=== PATIENT | female | born 1955 | race Two or more races ===

== ENCOUNTER → 2016-11-16 | Outpatient (CLI) | payer MEDICAID | LOC: FIMAGING 15:48 | PROVIDERS: ATTEND Internal Medicine | DX: R06.02 Shortness of breath (principal); R07.9 Chest pain, unspecified; R94.31 Abnormal electrocardiogram [ECG] [EKG] ==

== ENCOUNTER 2016-11-18 12:41 | Observation (INO) | payer MEDICAID ==
[2016-11-18] MEDS ORDERED: DIAZEPAM 5 MG TAB PO ONE (12:43)
[2016-11-18] MEDS ORDERED: diphenhydrAMINE 25 MG CAP PO ONE ×2 (12:43→13:03)
[2016-11-18] MEDS ORDERED: ASPIRIN EC 325 MG TAB PO ONE ×2 (12:43→13:03)
[2016-11-18] MEDS ORDERED: FAMOTIDINE 20 MG TAB PO ONE (12:43)
[2016-11-18] MEDS ORDERED: NS 1,000 ML IV ONE (12:43)
--- NOTE | 2016-11-18 13:01 | CPEKG ---
Heart Rate: 71 RR Interval: 845 P-R Interval: 164 QRSD Interval: 74 QT Interval: 392 QTC Interval: 426 P [place]: 49 QRS [place]: 17 T Wave [place]: 50 EKG Severity - NORMAL ECG - EKG Impression: SINUS RHYTHM Electronically Signed By: Abdias Jose 19-Nov-2016 13:02:02
[2016-11-18] MEDS ORDERED: DIAZEPAM 5 MG TAB ONE (13:03)
[2016-11-18] MEDS ORDERED: FAMOTIDINE 20 MG TAB ONE (13:03)
[2016-11-18 13:22] LABS: % IMMATURE GRANULYOCYTES 0.3 % (0.0-1.1); ABSOLUTE IMMATURE GRANULOCYTES 0.02 10^3/uL (0.00-0.10); ADD DIFF? NO; ADD MORPH? NO; ADD SCAN? NO; ATYPICAL LYMPHOCYTE FLAG 30 (0-99); FRAGMENT RBC FLAG 0 (0-99); HEMATOCRIT 39.2 % (38.0-47.0); HEMOGLOBIN 13.1 g/dL (12.6-16.3); LEFT SHIFT FLG 0 (0-99); LIPEMIA HEMOLYSIS FLAG 80 (0-99); MEAN CELL HEMOGLOBIN 29.1 pg (27.9-34.1); MEAN CELL HEMOGLOBIN CONCENTR. 33.4 g/dL (32.4-36.7); MEAN CELL VOLUME 87.1 fL (81.5-99.8); MEAN PLATELET VOLUME 9.8 fL (8.7-11.7); PLATELET CLUMPS FLAG 10 (0-99); PLATELET COUNT 369 10^3/uL (150-400); RED CELL DISTRIBUTION WIDTH 13.4 % (11.5-15.2)
[2016-11-18 13:25] LABS: INR 0.97 (0.83-1.16); PROTIME(PATIENT) 12.8 SEC (12.0-15.0)
[2016-11-18] MEDS ORDERED: LIDOCAINE 1% 30 ML SDV ONE (13:27)
[2016-11-18] MEDS ORDERED: MIDAZOLAM 2 MG/2 ML VIAL ONE (13:28)
[2016-11-18] MEDS ORDERED: fentaNYL 100 MCG/2 ML INJ ONE (13:28)
[2016-11-18] MEDS ORDERED: IOPAMIDOL (ISOVUE 370) 100 ML BTL IV ONE (13:28)
[2016-11-18 13:50] LABS: ANION GAP 11 mEq/L (8-16); CALCIUM 9.8 mg/dL (8.5-10.4); CARBON DIOXIDE 20 mEq/l (22-31); CHLORIDE 108 mEq/L (97-110); CHOLESTEROL 188 mg/dL (140-220); CHOLESTEROL/HDL RATIO 3.19 RATIO (1.00-4.44); CREATININE 0.5 mg/dL (0.6-1.0); GLOMERULAR FILTRATION RATE > 60; GLUCOSE 83 mg/dL (70-100); HIGH DENSITY LIPOPROTEIN 59 mg/dL (40-85); LDL/HDL RATIO 1.95 RATIO (1.00-3.22); LOW DENSITY LIPOPROTEIN 115 mg/dL (80-100); MAGNESIUM 2.1 mg/dL (1.6-2.3); NON-HIGH DENSITY LIPOPROTEIN 129 mg/dL (90-129); POTASSIUM 4.3 mEq/L (3.5-5.2); SODIUM 139 mEq/L (134-144); TRIGLYCERIDE 74 mg/dL (35-135); VERY LOW DENSITY LIPOPROTEINS 14 mg/dL (8-25)
--- NOTE | 2016-11-18 15:01 | CPIP ---
[f rep st] INVASIVE CARDIAC PROCEDURE PROCEDURE: 1. Left heart catheterization. 2. Left ventriculogram. 3. Right and left coronary arteriogram. INDICATIONS: The patient has a marked family history of premature coronary artery disease. The patient has had a history of dyslipidemia. The patient has had increased shortness of breath. The patient has an abnormal regular stress test with [address]-segment depression prior to peak exercise. The patient has shortness of breath which could be an anginal equivalent. The patient has a high risk stress test. ANGIOGRAPHY: Left main coronary artery normal. Left anterior descending artery normal. Circumflex coronary artery normal. Right coronary artery normal. The right coronary artery is dominant. LEFT HEART CATHETERIZATION: Left ventricular end-diastolic pressure 12 mmHg. No aortic stenosis present. LEFT VENTRICULOGRAM: Normal left ventricular chamber dimension. Normal left ventricular systolic function. No regional wall motion abnormalities. No significant mitral regurgitation. COMPLICATIONS: None. CONDITION AT THE END OF STUDY: Excellent. Results were discussed with the patient's life partner. Patient is waking up well as this is being dictated. /[id number]/MODL MTDD
[2016-11-18 19:46] VITALS: BP 120/87; PULSE 68; RESP 20; TEMP 97.9; O2SAT 96
== END 2016-11-18 21:15 | disposition home or self-care (01) ==
LOC: FCATH 12:41 → F2W 14:04
PROVIDERS: ADMIT Internal Medicine; ATTEND Internal Medicine
PROC: 4A023N7 Measurement of Cardiac Sampling and Pressure, Left Heart, Percutaneous Approach (ICD-10-PCS; principal; 2016-11-18)
PROC: B2111ZZ Fluoroscopy of Multiple Coronary Arteries using Low Osmolar Contrast (ICD-10-PCS; principal; 2016-11-18)
PROC: B2151ZZ Fluoroscopy of Left Heart using Low Osmolar Contrast (ICD-10-PCS; principal; 2016-11-18)
DX: R06.02 Shortness of breath (principal); R07.9 Chest pain, unspecified; R94.39 Abnormal result of other cardiovascular function study; E78.5 Hyperlipidemia, unspecified; E03.9 Hypothyroidism, unspecified; Z82.49 Family history of ischemic heart disease and other diseases of the circulatory system
CPT/HCPCS: 93005; 93458; G0378; C1760; J1644; J2250; J3010; Q9967